=== PATIENT | male | born 1980 | race Caucasian/White ===

== ENCOUNTER → 2021-09-28 11:51 | Outpatient (CLI) | payer OTHER, SELFPAY | PROVIDERS: PCP Nurse Practitioner Family; Visit Provider Nurse Practitioner Family | DX: U07.1 COVID-19 (principal) | CPT/HCPCS: C9803; U0003; U0005 ==

== ENCOUNTER 2025-06-27 13:41 | Outpatient (CLI) | payer OTHER, SELFPAY ==
--- NOTE | 2025-06-27 13:43 | XR_ITS ---
FINAL REPORT CLINICAL HISTORY: right knee pain swelling COMPARISON: None FINDINGS: RIGHT KNEE Three views demonstrate no acute fracture or dislocation. The joint spaces are preserved. There is soft tissue edema anterior to the patella measuring up to 10 mm. There is soft tissue swelling anterior to the patellar tendon measuring up to 2.5 cm IMPRESSION: Soft tissue edema as above without acute bony abnormality. Reviewed, Interpreted and Dictated by Eros Stock MD Transcribed by Lida Kline Authenticated and [facility]
== END 2025-06-27 23:59 | disposition home or self-care (01) ==
LOC: RAD 13:42
PROVIDERS: PCP Family Medicine; Visit Provider Orthopaedic Surgery
DX: M79.89 Other specified soft tissue disorders (principal); M25.561 Pain in right knee
CPT/HCPCS: 73562